=== PATIENT | female | born 1935 | race Caucasian/White ===

== ENCOUNTER 2018-05-14 06:59 | Day surgery (SDC) | payer MEDICARE ==
--- NOTE | 2018-05-12 13:20 | HP ---
DATE OF SURGERY: 05/14/2018 ANTICIPATED PROCEDURES: 1) EGD. 2) Colonoscopy. HISTORY OF PRESENT ILLNESS: The patient has dysphagia requiring EGD possible dilatation. She also has not had a recent colonoscopic examination. She has been constipated. She presents for colonoscopy also. PAST MEDICAL HISTORY: ALLERGIES: NONE. MEDICATIONS: Multiple. PAST SURGICAL HISTORY: Multiple. SOCIAL HISTORY: Negative. FAMILY HISTORY: Negative. REVIEW OF SYSTEMS: CVS: Positive. Pulmonary: Positive. GI: Positive. : Negative. Ortho/Neuro: Positive. PHYSICAL EXAMINATION: VITAL SIGNS: Normal. CHEST: Clear. COR: Regular. ABDOMEN: No palpable organomegaly or mass. IMPRESSION: 1) Dysphagia. EGD dilatation. 2) Constipation. No recent exam. Plan colonoscopy.
[~2018-05-14 06:59] MED LIST: Lactated Ringers 1,000 ML IV SCH
[2018-05-14] MEDS ORDERED: DIPRIVAN 200 MG/20 ML IV ONE (07:00)
--- NOTE | 2018-05-14 11:34 | OP ---
SURGERY DATE/TIME: 05/14/2018 1024 PREOPERATIVE DIAGNOSES: 1) Dysphagia. 2) Obstipation. POSTOPERATIVE DIAGNOSES: 1) The patient has a fairly large hiatal hernia 4 inch but there is no obstruction. There is no bezoar and there is really no inflammation with a wide open system. 2) Colonoscopy limited to 50 cm upper sigmoid, severe diverticulosis. It could not be cannulated. The lumen was slightly smaller than the scope. Barium enema examination is in order. PROCEDURES: 1) EGD. 2) Colonoscopy. SURGEON: Slade Mosley M.D. ANESTHESIA: MAC. CONDITION: Stable. COMPLICATIONS: None. INDICATION: The patient has both dysphagia and obstipation. DESCRIPTION OF PROCEDURE: Taken to endoscopy. Scope introduced. Pharyngoesophageal junction was normal. Esophagus was shortened. There was a large hiatal hernia. Pylorus normal. Duodenal bulb normal. Second portion normal. The scope was looped upon itself normal. At least a 4 inch hiatal hernia. There was no obstruction. No bezoar. No retained fluid. I think she just needs to take her time and chew food well. Anal digital examination satisfactory. Scope advanced to the rectum to the distal sigmoid. In the proximal sigmoid there was severe diverticulosis and it was obstructed to the scope. The lumen was just a hair smaller than the scope and the procedure was terminated. A barium enema examination is in order.
[2018-05-14 13:18] VITALS: BP 123/84; PULSE 72; O2SAT 95
--- NOTE | 2018-05-14 13:19 | XRAY ---
Indication: Incomplete colonoscopy. Constipation. 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 Remaining solid organs are unremarkable. Osseous structures intact with mild multilevel thoracolumbar degenerative spondylosis. Following insertion of balloon tip enema catheter, barium and air insufflation was performed using fluoroscopic and gravity control. Multiple digital spot and overhead radiographs obtained. There is satisfactory opacification of the entire colon. Scattered diverticulosis, greatest in descending and sigmoid colon. Mid to proximal sigmoid colon demonstrates focal persistent high-grade stricture, either scarring from previous inflammation/diverticulitis versus colonic mass. Remaining colon demonstrates normal distention without focal stricture, obstruction, or filling defect. Normal appearing right lower quadrant cecum. No presacral soft tissue mass. Impression: 1. Persistent focal sigmoid stricture, scarring versus mass. CT with IV and enteric/rectal contrast may yield further information. 2. Scattered diverticulosis. 4. Approximately 2.4 minute fluoroscopy used.
== END 2018-05-14 13:20 | disposition home or self-care (01) ==
LOC: SDC 06:59
PROVIDERS: ATTEND Surgery
DX: K44.9 Diaphragmatic hernia without obstruction or gangrene (principal); K57.30 Diverticulosis of large intestine without perforation or abscess without bleeding; R13.10 Dysphagia, unspecified; K59.00 Constipation, unspecified
CPT/HCPCS: 74270; J2704